=== PATIENT | female | born 1990 | race Caucasian/White ===

== ENCOUNTER 2018-01-11 15:20 | Inpatient (IN) | payer OTHER ==
[~2018-01-11 15:20] MED LIST: EPHEDrine SULFATE 50 MG/5 ML SYG; PHENYLephrine (100 MCG/ML) 5ML SYG
[2018-01-11] MEDS ORDERED: METHYLERGONOVINE 0.2 MG INJ IM ×2 (16:00→22:30)
[2018-01-11] MEDS ORDERED: MISOPROSTOL 200 MCG TAB PR ×2 (16:00→22:30)
[2018-01-11] MEDS ORDERED: CARBOPROST 250 MCG INJ IM ×2 (16:00→22:30)
[2018-01-11] MEDS ORDERED: OXYTOCIN 30 UNITS/LR 500 ML IV (16:00)
[2018-01-11] MEDS: LACTATED RINGER'S 1,000 ML IV ×3 (16:09→21:25)
[2018-01-11 16:26] LABS: ADD MAN DIFF? NO
[2018-01-11 16:31] LABS: WHITE BLOOD COUNT 8.2 10^3/ul (4.8-10.8)
[2018-01-11 16:31] LABS: BASOPHILS % 0.2 % (0.0-2.0); EOSINOPHILS % 0.5 % (0.0-7.0); HEMATOCRIT 36.9 % (37.0-47.0); HEMOGLOBIN 12.1 g/dl (12.0-16.0); LYMPHOCYTES # 1.6 10^3/ul (0.8-2.9); LYMPHOCYTES % 18.9 % (15.0-51.0); MEAN CORPUSCULAR HEMOGLOBIN 27.1 pg (29.0-33.0); MEAN CORPUSCULAR HGB CONC 32.8 g/dl (32.0-37.0); MEAN CORPUSCULAR VOLUME 82.6 fl (82.0-101.0); MEAN PLATELET VOLUME 11.3 fl (7.4-10.4); MONOCYTE # 0.4 10^3/ul (0.3-0.9); NEUTROPHIL # 6.1 10^3/ul (1.6-7.5); PLATELET COUNT 199 10^3/UL (140-415); RED BLOOD COUNT 4.47 10^6/ul (4.20-5.40); RED CELL DISTRIBUTION WIDTH 15.9 % (11.5-14.5)
[2018-01-11 16:50] LABS: INR 0.93; PROTIME 12.5 Sec (11.9-14.9)
[2018-01-11 16:51] LABS: PARTIAL THROMBOPLASTIN TIME 29.8 Sec (25.0-35.0)
[2018-01-11] MEDS ORDERED: FENTAnyl 50 MCG/ML VIAL (17:15)
[2018-01-11] MEDS ORDERED: BUPIVACAINE 0.75%/DEXT (SPINAL) 2 ML INJ (17:15)
[2018-01-11] MEDS ORDERED: morphine SULFATE/PF (10 MG/10 ML) INJ (17:16)
[2018-01-11 17:35] LABS: HEPATITIS B SURFACE ANTIGEN NEGATIVE (NEGATIVE)
[2018-01-11] MEDS: CEFAZOLIN 2 GM/50 ML (PMX) 50 ML IV (17:56)
[2018-01-11] MEDS ORDERED: DEXAMETHASONE 4 MG/ML 1 ML INJ (18:15)
[2018-01-11] MEDS ORDERED: ONDANSETRON 4 MG INJ (18:16)
[2018-01-11] MEDS ORDERED: ZOLPIDEM 5 MG TAB PO (19:30)
[2018-01-11] MEDS ORDERED: HYDROmorphONE 0.5 MG/0.5 ML SYG IV ×2 (19:30)
[2018-01-11] MEDS ORDERED: ONDANSETRON 4 MG INJ IV (19:30)
[2018-01-11] MEDS ORDERED: NALOXONE (0.4 MG/ML) INJ IV (19:30)
[2018-01-11] MEDS ORDERED: DIPHENHYDRAMINE 50 MG INJ IV (19:30)
[2018-01-11] MEDS: AZITHROMYCIN 500MG/NS (PMX) 250 ML IVPB (19:46)
[2018-01-12] MEDS: OXYTOCIN 30 UNITS/LR 500 ML IV ×2 (01:03→11:39)
[2018-01-12] MEDS: CLINDAMYCIN 300 MG CAP PO ×4 (06:26→18:17)
[2018-01-12 09:42] LABS: ADD MAN DIFF? NO
[2018-01-12 09:55] LABS: BASOPHILS % 0.2 % (0.0-2.0); EOSINOPHILS % 0.1 % (0.0-7.0); HEMATOCRIT 33.3 % (37.0-47.0); HEMOGLOBIN 10.9 g/dl (12.0-16.0); LYMPHOCYTES # 1.6 10^3/ul (0.8-2.9); LYMPHOCYTES % 14.5 % (15.0-51.0); MEAN CORPUSCULAR HEMOGLOBIN 27.6 pg (29.0-33.0); MEAN CORPUSCULAR HGB CONC 32.7 g/dl (32.0-37.0); MEAN CORPUSCULAR VOLUME 84.3 fl (82.0-101.0); MEAN PLATELET VOLUME 12.2 fl (7.4-10.4); MONOCYTE # 0.7 10^3/ul (0.3-0.9); MONOCYTES % 6.1 % (0.0-11.0); NEUTROPHIL # 8.9 10^3/ul (1.6-7.5); NEUTROPHILS % 78.7 % (39.0-77.0); PLATELET COUNT 188 10^3/UL (140-415); RED BLOOD COUNT 3.95 10^6/ul (4.20-5.40); RED CELL DISTRIBUTION WIDTH 15.5 % (11.5-14.5)
[2018-01-12 09:55] LABS: WHITE BLOOD COUNT 11.3 10^3/ul (4.8-10.8)
[2018-01-12] MEDS: BISACODYL 10 MG SUPP PR (10:30)
[2018-01-12] MEDS: KETOROLAC 30 MG INJ IV ×2 (11:35→18:17)
[2018-01-12 16:23] LABS: RAPID PLASMA REAGIN NONREACTIVE (NR)
[2018-01-12] MEDS ORDERED: HYDROCODONE/APAP (5/325) TAB PO (22:30)
[2018-01-13] MEDS: CLINDAMYCIN 300 MG CAP PO ×4 (00:10→18:15)
[2018-01-13] MEDS: OXYCODONE/ACETAMINOPHEN (5/325) TAB PO ×3 (00:11→11:48)
[2018-01-13] MEDS: BISACODYL 10 MG SUPP PR (06:00)
[2018-01-13] MEDS: IBUPROFEN 800 MG TAB PO ×2 (16:53→21:43)
[2018-01-14] MEDS: CLINDAMYCIN 300 MG CAP PO ×2 (00:09→05:58)
[2018-01-14] MEDS: IBUPROFEN 800 MG TAB PO (05:59)
== END 2018-01-14 13:36 | disposition home or self-care (01) | DRG 766 ==
LOC: L-D 15:20 → PP1 22:11
PROVIDERS: Obstetrics & Gynecology
PROC: 10D00Z1 Extraction of Products of Conception, Low, Open Approach (ICD-10-PCS; principal; 2018-01-11 15:30)
PROC: 3E033VJ Introduction of Other Hormone into Peripheral Vein, Percutaneous Approach (ICD-10-PCS; 2018-01-11 15:30)
DX: O34.211 Maternal care for low transverse scar from previous cesarean delivery (principal); Z3A.39 39 weeks gestation of pregnancy; Z37.0 Single live birth
CPT/HCPCS: 85025; 85610; 85730; 86592; 86850; 86900; 86901; 87340; 99464